=== PATIENT | female | born 1990 | race American Indian/Alaskan Native ===

== ENCOUNTER 2018-12-01 09:28 | Emergency (ER) | payer SELFPAY ==
--- NOTE | 2018-12-01 11:08 | XRay Report ---
RIGHT KNEE, 3 views: History: Right knee pain. The bony architecture is intact without evidence of fracture or dislocation. No significant soft tissue abnormality is seen. IMPRESSION: Normal right knee.
--- NOTE | 2018-12-01 11:30 | Emergency Department Report ---
ED Lower Extremity HPI - General Chief Complaint: Extremity Problem,Nontraumatic Stated Complaint: RT KNEE SWOLLEN Time Seen by Provider: 12/01/18 10:29 Source: patient Mode of arrival: Ambulatory Limitations: No Limitations - History of Present Illness Initial Comments: Patient is a pleasant 28-year-old who comes to the ER with right knee pain and swelling. She states that she had an injury a long time ago to the knee but lately it has swollen. She has no new trauma. There pt is ambulatory -: month(s) Injury: Knee: Right Place: home Improves With: nothing - Related Data Allergies Allergy/AdvReac Type Severity Reaction Status Date / Time No Known Allergies Allergy Unverified 12/01/18 09:51 ED Review of Systems ROS: Stated complaint: RT KNEE SWOLLEN Other details as noted in HPI Comment: All other systems reviewed and negative Constitutional: denies: see HPI ENT: denies: as per HPI Respiratory: denies: no symptoms reported Cardiovascular: denies: chest pain Endocrine: denies: see HPI Genitourinary: denies: urgency Musculoskeletal: as per HPI Skin: denies: rash Neurological: denies: weakness Hematological/Lymphatic: denies: as per HPI ED Past Medical Hx - Past Medical History Additional medical history: inguinial hernia - Surgical History Additional Surgical History: hernia repair - Social History Smoking Status: Current Every Day Smoker Substance Use Type: Alcohol ED Physical Exam - General Limitations: No Limitations General appearance: alert - Head Head exam: Present: atraumatic - Eye Eye exam: Present: normal appearance, PERRL Pupils: Present: normal accommodation - ENT ENT exam: Present: mucous membranes moist - Neck Neck exam: Present: normal inspection - Respiratory Respiratory exam: Present: normal lung sounds bilaterally - Cardiovascular Cardiovascular Exam: Present: regular rate - GI/Abdominal GI/Abdominal exam: Present: soft - Rectal Rectal exam: Present: deferred - Expanded Lower Extremity Exam Right Upper Leg exam: Present: normal inspection Knee exam: Present: full ROM, tenderness, swelling Lower Leg exam: Present: normal inspection ED Course Vital Signs 12/01/18 09:51 Temperature 98.6 F Pulse Rate 95 H Respiratory 16 Rate Blood Pressure 113/78 [Left] O2 Sat by Pulse 99 Oximetry ED Lower Extremity MDM - Radiology Data Radiology results: report reviewed, image reviewed - Medical Decision Making old injury with new pain and swelling effusion on exam immobilize and home with ortho follow up Critical care attestation.: If time is entered above; I have spent that time in minutes in the direct care of this critically ill patient, excluding procedure time. ED Disposition Clinical Impression: Knee effusion, right, Knee pain Disposition: TO HOME OR SELFCARE Is pt being admited?: No Does the pt Need Aspirin: No Condition: Stable Instructions: Knee Effusion (ED) Additional Instructions: Ice to knee elevate leg when sitting immobilizer to dec swelling motrin will help with inflammation that is causing the swelling; it will help with pain as well diet as tolerated follow up with ortho for reeval referral below Referrals: GILBERTO HARRISON MD [Primary Care Provider] - 3-5 Days MARIANNA ESTRADA MD [Staff Physician] - 3-5 Days Time of Disposition: 11:34
[2018-12-01] MEDS ORDERED: TORADOL IM ONE (11:32)
[2018-12-01 12:09] VITALS: BP 110/72
== END 2018-12-01 12:06 | disposition home or self-care (01) ==
LOC: ED 09:28
DX: M25.461 Effusion, right knee (principal); F17.200 Nicotine dependence, unspecified, uncomplicated
CPT/HCPCS: 73562; 96372; 99283; J1885

== ENCOUNTER 2020-02-04 11:48 | Emergency (ER) | payer OTHER ==
[2020-02-04 11:56] VITALS: BP 122/81
[2020-02-04] MEDS ORDERED: IBUPROFEN 800 MG TAB PO ONE (12:13)
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
--- NOTE | 2020-02-04 12:40 | XRay Report ---
RIGHT KNEE 3 VIEWS INDICATION: knee pain. COMPARISON: 12/01/2018 IMPRESSION: No acute osseous or soft tissue abnormality. No significant DJD. No significant goodwin e since 12/01/2018. Signer Name: Kelvin Bose Jr, MD Signed: 02/04/2020 12:35 PM Workstation Name: [id number]
== END 2020-02-04 14:02 | disposition home or self-care (01) ==
LOC: ED 11:48
DX: S86.911A Strain of unspecified muscle(s) and tendon(s) at lower leg level, right leg, initial encounter (principal); F17.200 Nicotine dependence, unspecified, uncomplicated; Z98.890 Other specified postprocedural states; Z79.1 Long term (current) use of non-steroidal anti-inflammatories (NSAID); Z79.899 Other long term (current) drug therapy; V49.49XA Driver injured in collision with other motor vehicles in traffic accident, initial encounter; Y93.89 Activity, other specified; Y92.410 Unspecified street and highway as the place of occurrence of the external cause; Y99.8 Other external cause status
CPT/HCPCS: 99283

== ENCOUNTER 2022-03-22 02:42 | Emergency (ER) | payer MEDICAID ==
[2022-03-22] MEDS ORDERED: IBUPROFEN 800 MG TAB PO ONE (09:28)
[2022-03-22 09:53] VITALS: BP 122/78
[2022-03-22] MEDS ORDERED: dexAMETHasone 4 MG/ML VIAL IM ONE (10:01)
[2022-03-22] MEDS ORDERED: LIDOCAINE-MPF (1%) 10 MG/1 ML VIAL 5 ML INFILTRATI ONE (10:01)
--- NOTE | 2022-03-22 10:03 | XRay Report ---
CHEST 2 VIEWS INDICATION / CLINICAL INFORMATION: sob. COMPARISON: 04/16/2020 FINDINGS: SUPPORT DEVICES: None. HEART / MEDIASTINUM: No significant abnormality. LUNGS / PLEURA: No significant pulmonary or pleural abnormality. No pneumothorax. ADDITIONAL FINDINGS: No significant additional findings. IMPRESSION: 1. No acute findings. Signer Name: Maximo Mayes MD Signed: 03/22/2022 9:58 AM Workstation Name: [id number]
--- NOTE | 2022-03-22 10:03 | Emergency Department Report ---
Minor Respiratory - HPI Chief Complaint: Upper Respiratory Infection Stated Complaint: BODY ACHES/THROAT PAIN/COUGH CAUSING CHEST PAIN Time Seen by Provider: 03/22/22 08:01 Duration: 2 Days Pain Location: Throat Severity: mild Minor Respiratory: Yes Sore Throat, Yes Able to Tolerate Fluids, Yes Fever, No Rhinorrhea, No Ear Pain, No Cough, No Sick Contacts, No Hemoptysis, No Chest Pain, No Shortness of Breath Other History: Patient is a 31-year-old female that comes to the ER with bilateral tonsillar pain and fever. She is able to take p.o. There is no trismus. No abscess. Patient ambulatory nontoxic and [id number] ED Review of Systems ROS: Stated complaint: BODY ACHES/THROAT PAIN/COUGH CAUSING CHEST PAIN Other details as noted in HPI Comment: All other systems reviewed and negative ED Past Medical Hx - Past Medical History Previous Medical History?: Yes Hx Asthma: Yes Additional medical history: inguinial hernia - Surgical History Past Surgical History?: Yes Additional Surgical History: hernia repair - Family History Family history: no significant - Social History Smoking Status: Never Smoker Substance Use Type: None - Medications Home Medications: Home Medications Medication Instructions Recorded Confirmed Last Taken Type Ibuprofen [Motrin 600 MG tab] 600 mg PO Q8H PRN #30 tablet 07/14/19 Unknown Rx Cyclobenzaprine [Flexeril] 10 mg PO QHS PRN #10 tablet 02/04/20 Unknown Rx Ibuprofen [Motrin] 600 mg PO Q8H PRN #20 tablet 02/04/20 Unknown Rx Guaifenesin/Pseudoephedrne HCl 1 each PO BID PRN #20 tab.er.12h 04/16/20 Unknown Rx [Mucinex D ER 1,200-120 mg Tab] Ibuprofen [Motrin 800 MG tab] 800 mg PO Q8HR PRN #30 tablet 04/16/20 Unknown Rx Amoxicillin [Trimox CAP] 500 mg PO BID #20 capsule 03/22/22 Unknown Rx Minor Respiratory Exam - Exam General: Vital signs noted. No distress. Alert and acting appropriately. HEENT: Yes Pharyngeal Erythema, Yes Pharyngeal Exudates, Yes Moist Mucous Membranes, No Rhinorrhea, No Conjuctival Injection, No Frontal Tenderness, No Maxillary Tenderness Ear: Neither TM Bulge, Neither TM Erythema, Neither EAC Pain, Neither EAC Discharge Neck: Yes Supple, No Adenopathy Lungs: Yes Good Air Exchange, No Wheezes, No Ronchi, No Stridor, No Cough, No Labored Respirations, No Retractions, No Use of Accessory Muscles, No Other Abnormal Lung Sounds Heart: Yes Regular, No Murmur Abdomen: Yes Normal Bowel Sounds, No Tenderness, No Peritoneal Signs Skin: No Rash, No Edema Neurologic: Alert and oriented, no deficits. Musculoskeletal: Unremarkable. ED Course Vital Signs 03/22/22 03/22/22 03/22/22 05:36 09:51 09:52 Temperature 100.2 F H 98.9 F Pulse Rate 105 H 72 Respiratory 181 H 14 14 Rate Blood Pressure 122/78 [Right] O2 Sat by Pulse 98 98 Oximetry ED Medical Decision Making - Radiology Data Radiology results: report reviewed, image reviewed No acute process - Medical Decision Making Vital Signs 03/22/22 03/22/22 03/22/22 05:36 09:51 09:52 Temperature 100.2 F H 98.9 F Pulse Rate 105 H 72 Respiratory 181 H 14 14 Rate Blood Pressure 122/78 [Right] O2 Sat by Pulse 98 98 Oximetry Patient medicated for pain in the ER. Patient being started on antibiotics. Patient taking p.o. Patient being discharged home with discharge plan of care including diet, activity, medications and follow-up. She verbalizes understanding of plan of care - Differential Diagnosis URI Critical care attestation.: If time is entered above; I have spent that time in minutes in the direct care of this critically ill patient, excluding procedure time. ED Disposition Clinical Impression: Exudative pharyngitis Disposition: HOME / SELF CARE / HOMELESS Is pt being admited?: No Does the pt Need Aspirin: No Condition: Stable Instructions: Sore Throat Additional Instructions: Motrin or Tylenol for pain Medication as ordered today until gone When you are done with the medication follow-up with PCP to make sure this is gone away Stay well-hydrated with water Get a new toothbrush Do not anyone eat or drink after you Prescriptions: Amoxicillin [Trimox CAP] 500 mg PO BID #20 capsule Referrals: MARYA RAMIREZ MD [Staff Physician] - 3-5 Days Forms: Work/School Release Form(ED) Time of Disposition: 10:02
== END 2022-03-22 10:43 | disposition home or self-care (01) ==
LOC: ED 02:42
DX: J02.9 Acute pharyngitis, unspecified (principal); J45.909 Unspecified asthma, uncomplicated
CPT/HCPCS: 71046; 96372; 99283; J0696; J1100; J3490